=== PATIENT | female | born 1940 | race Caucasian/White ===

== ENCOUNTER → 2018-07-03 | Outpatient (CLI) | payer MEDICARE, BC ==
[~2018-07-03] MED LIST: ANTIVERT 25MG25 MG PO; ASPIRIN 81M81 MG/TA2 PO; CALCIUM500 MG PO; CHOLESTEROL MED; CLARITIN 1010 MG/TAB PO; CORGARD40 MG PO; DYAZIDE 25 MG-31 CAP PO; FISH OIL1000 MG PO; LEVAQUIN500 MG PO; LEVEMIR100 U/ML SQ; LEVOTHYROXIN0.137 MG PO; LOTENSIN20 MG PO; METFORMIN500 MG PO; NADOLOL40 MG PO; NORVASC10 MG PO; ONGLYZA5 MG PO; PLAVIX 75MG TAB75 MG PO; POLICOSANOL10 MG PO; POMEGRANATE WIT1 CAP PO; PRILOSEC 20MG20 MG PO; PROAIR HFA0.09 MG/AC IH; TRAVATAN Z 2.52.5 ML OP; VITAMIN B12100 MCG PO; VITAMIN D 400400 IU PO; XALATAN EYE DROPS OD; ZESTRIL 20MG TA20 MG PO
== END ==
LOC: COL.RAD 07:41
DX: M25.552 Pain in left hip (principal)
CPT/HCPCS: J3301; Q9967

== ENCOUNTER → 2018-11-28 | Outpatient (CLI) | payer MEDICARE, BC | LOC: COL.RAD 10:05 | DX: G31.9 Degenerative disease of nervous system, unspecified (principal); I67.82 Cerebral ischemia; R20.0 Anesthesia of skin; H53.8 Other visual disturbances ==

== ENCOUNTER → 2019-01-31 | Outpatient (CLI) | payer MEDICARE, BC | LOC: MC.RAD 10-14 13:00 | DX: Z12.31 Encounter for screening mammogram for malignant neoplasm of breast (principal) ==

== ENCOUNTER → 2019-04-25 | Outpatient (CLI) | payer MEDICARE, BC | LOC: COL.RAD 07:41 | DX: M25.552 Pain in left hip (principal) | CPT/HCPCS: J3301; Q9967 ==

== ENCOUNTER 2019-09-13 00:39 | Emergency (ER) | payer MEDICARE, BC ==
[~2019-09-13] VITALS: Ht 162.6 cm; Wt 82.3 kg
[2019-09-13 00:54] VITALS: TEMP 97.5
[2019-09-13 01:13] LABS: BASO # 0.1 (0.0-0.2); BASO % 0.6 % (0.0-2.0); EOS # 0.2 (0.0-0.7); EOS % 2.8 % (0-4.0); GRAN # 4.1 (1.4-6.5); GRAN % 50.1 % (42.2-75.2); HEMATOCRIT 37.1 % (37.0-47.0); HEMOGLOBIN 12.1 g/dl (12.5-16.0); LYMPH # 2.7 (1.2-3.4); LYMPH % 33.3 % (20.0-51.0); MEAN CELL VOLUME 96 fl (80.0-100.0); MEAN CORPUSCULAR HEMOGLOBIN 31 pg (27.0-31.0); MEAN CORPUSCULAR HGB CONC 33 g/dl (33.0-37.0); MEAN PLATELET VOLUME 10.3 fl (7.4-10.4); MONO # 1.1 (0.1-0.6); MONO % 12.7 % (1.7-9.3); PLATELET COUNT 208 K/mm3 (130-400); RED BLOOD COUNT 3.87 M/mm3 (4.10-5.30)
[2019-09-13 01:16] LABS: PROTHROMBIN TIME 11.2 SECONDS (9.7-12.8)
[2019-09-13 01:20] LABS: ALANINE AMINOTRANSFERASE 16 U/L (9-52); ALBUMIN 4.3 gm/dL (3.5-5.0); ALKALINE PHOSPHATASE 49 U/L (50-136); ANION GAP 11 mmol/L (7-16); AST,SGOT 35 U/L (15-37); BILIRUBIN,TOTAL 0.2 mg/dL (0.0-1.0); BLOOD UREA NITROGEN 37 mg/dL (7-17); CALCIUM 9.4 mg/dL (8.4-10.2); CARBON DIOXIDE 25 mmol/L (22-30); CHLORIDE 105 mmol/L (98-107); CREATININE, serum 1.09 (0.52-1.25); GLUCOSE 148 mg/dL (74-106); POTASSIUM 4.1 mmol/L (3.4-5.0); SODIUM 141 mmol/L (137-145); TOTAL PROTEIN 7.6 gm/dL (6.4-8.2)
[2019-09-13 01:31] LABS: TROPONIN-I < 0.012 ng/mL (0.000-0.035)
[2019-09-13 05:45] VITALS: BP 134/48; PULSE 55
== END 2019-09-13 05:59 | disposition home or self-care (01) ==
LOC: COL.ER 00:39
PROVIDERS: Emergency Medicine
DX: G89.29 Other chronic pain (principal); M25.512 Pain in left shoulder; E86.0 Dehydration; R20.2 Paresthesia of skin; M54.5 Low back pain; E11.9 Type 2 diabetes mellitus without complications; I10 Essential (primary) hypertension; E03.9 Hypothyroidism, unspecified; Z79.82 Long term (current) use of aspirin; Z79.4 Long term (current) use of insulin
CPT/HCPCS: J1885; J2360; J7030

== ENCOUNTER → 2019-09-23 | Outpatient (CLI) | payer MEDICARE, BC | LOC: COL.RAD 07:55 | DX: M25.552 Pain in left hip (principal) | CPT/HCPCS: J3301; Q9967 ==

== ENCOUNTER 2020-07-29 11:09 | Emergency (ER) | payer MEDICARE, BC ==
[~2020-07-29] VITALS: Ht 162.6 cm; Wt 77.7 kg
[2020-07-29 11:18] VITALS: TEMP 98
[2020-07-29 11:57] LABS: BASO # 0.1 (0.0-0.2); BASO % 0.5 % (0.0-2.0); EOS # 0.3 (0.0-0.7); EOS % 2.9 % (0-4.0); GRAN # 5.4 (1.4-6.5); GRAN % 58.9 % (42.2-75.2); HEMATOCRIT 37.8 % (37.0-47.0); HEMOGLOBIN 12.6 g/dl (12.5-16.0); LYMPH # 2.6 (1.2-3.4); LYMPH % 27.7 % (20.0-51.0); MEAN CELL VOLUME 94 fl (80.0-100.0); MEAN CORPUSCULAR HEMOGLOBIN 31 pg (27.0-31.0); MEAN CORPUSCULAR HGB CONC 33 g/dl (33.0-37.0); MEAN PLATELET VOLUME 10.1 fl (7.4-10.4); MONO # 0.9 (0.1-0.6); MONO % 9.7 % (1.7-9.3); PLATELET COUNT 252 K/mm3 (130-400); RED BLOOD COUNT 4.03 M/mm3 (4.10-5.30); REDCELL DISTRIBUTION WIDTH-CV 13.2 % (11.5-14.5)
[2020-07-29 12:10] LABS: ALBUMIN 4.6 gm/dL (3.5-5.0); BILIRUBIN,TOTAL 0.3 mg/dL (0.0-1.0); CALCIUM 9.4 mg/dL (8.4-10.2); POTASSIUM 4.1 mmol/L (3.4-5.0); TOTAL PROTEIN 8.1 gm/dL (6.4-8.2)
[2020-07-29 14:54] VITALS: BP 112/70; PULSE 79
[2020-08-02] MEDS ORDERED: PLAVIX 75MG TAB75 MG PO (17:08)
[2020-08-02] MEDS ORDERED: AMARYL 2MG T2 MG/TAB PO (17:46)
[2020-08-02] MEDS ORDERED: HCTZ12.5TAB PO (17:47)
[2020-08-02] MEDS ORDERED: TRULICITY0.75 MG/0. SQ (17:47)
[2020-08-02] MEDS ORDERED: PROLIA60 MG/ML SQ (17:48)
[2020-08-02] MEDS ORDERED: NOVOLOG 100U100 U/M1 SQ (17:49)
[2020-08-02] MEDS ORDERED: CRANBERRY250 MG PO (20:54)
[2020-08-02] MEDS ORDERED: ATORVASTATIN PO (20:56)
== END 2020-07-29 15:17 | disposition home or self-care (01) ==
LOC: COL.ER 11:09
PROVIDERS: Emergency Medicine
DX: R20.2 Paresthesia of skin (principal); Z88.8 Allergy status to other drugs, medicaments and biological substances; Z79.82 Long term (current) use of aspirin; Z79.4 Long term (current) use of insulin

== ENCOUNTER → 2020-08-05 | Outpatient (CLI) | payer MEDICARE, BC ==
[~2020-08-05] MED LIST changes: +AMARYL 2MG T2 MG/TAB PO; +CRANBERRY250 MG PO; +HCTZ12.5TAB PO; +LIPITOR20 MG PO; +NOVOLOG 100U100 U/M1 SQ; +PROLIA60 MG/ML SQ; +TRULICITY0.75 MG/0. SQ
== END ==
LOC: MC.RAD 09:29
DX: Z12.31 Encounter for screening mammogram for malignant neoplasm of breast (principal); N64.4 Mastodynia

== ENCOUNTER 2020-09-17 17:33 | Emergency (ER) | payer MEDICARE, BC ==
[~2020-09-17] VITALS: Ht 162.6 cm; Wt 77.3 kg
[2020-09-17 17:37] VITALS: TEMP 98.2
[2020-09-17 18:14] LABS: BASO % 0.5 % (0.0-2.0); EOS # 0.2 (0.0-0.7); EOS % 2.4 % (0-4.0); GRAN % 50.7 % (42.2-75.2); HEMOGLOBIN 13.2 g/dl (12.5-16.0); LYMPH # 2.7 (1.2-3.4); LYMPH % 34.2 % (20.0-51.0); MEAN CELL VOLUME 91 fl (80.0-100.0); MEAN CORPUSCULAR HEMOGLOBIN 31 pg (27.0-31.0); MEAN CORPUSCULAR HGB CONC 34 g/dl (33.0-37.0); MEAN PLATELET VOLUME 9.9 fl (7.4-10.4); MONO # 0.9 (0.1-0.6); MONO % 11.8 % (1.7-9.3); PLATELET COUNT 290 K/mm3 (130-400); RED BLOOD COUNT 4.31 M/mm3 (4.10-5.30); REDCELL DISTRIBUTION WIDTH-CV 13.2 % (11.5-14.5)
[2020-09-17 18:20] LABS: PROTHROMBIN TIME 10.8 SECONDS (9.7-12.8)
[2020-09-17 18:26] LABS: ALANINE AMINOTRANSFERASE 22 U/L (4-34); ALBUMIN 4.6 gm/dL (3.5-5.0); ALKALINE PHOSPHATASE 48 U/L (50-136); ANION GAP 9 mmol/L (7-16); AST,SGOT 25 U/L (15-37); BILIRUBIN,TOTAL 0.3 mg/dL (0.0-1.0); BLOOD UREA NITROGEN 23 mg/dL (7-17); CALCIUM 9.5 mg/dL (8.4-10.2); CARBON DIOXIDE 27 mmol/L (22-30); CHLORIDE 102 mmol/L (98-107); CREATINE KINASE 114 U/L (30-135); CREATININE, serum 0.94 (0.52-1.25); GLUCOSE 128 mg/dL (74-106); LIPASE 105 U/L (23-300); POTASSIUM 3.3 mmol/L (3.4-5.0); SODIUM 139 mmol/L (137-145); TOTAL PROTEIN 8.1 gm/dL (6.4-8.2)
[2020-09-17 18:39] LABS: TROPONIN-I < 0.012 ng/mL (0.000-0.035)
[2020-09-17 18:49] LABS: D-DIMER < 200.00 ng/mLDDu (200-230)
[2020-09-17 21:21] VITALS: BP 167/84; PULSE 76
== END 2020-09-17 21:34 | disposition home or self-care (01) ==
LOC: COL.ER 17:33
PROVIDERS: Emergency Medicine
DX: R07.89 Other chest pain (principal); R11.0 Nausea; E11.9 Type 2 diabetes mellitus without complications; I10 Essential (primary) hypertension; E03.9 Hypothyroidism, unspecified; Z79.82 Long term (current) use of aspirin; Z79.02 Long term (current) use of antithrombotics/antiplatelets; Z87.891 Personal history of nicotine dependence; Z88.8 Allergy status to other drugs, medicaments and biological substances; Z79.890 Hormone replacement therapy; Z79.4 Long term (current) use of insulin
CPT/HCPCS: J7030; Q9967

== ENCOUNTER 2021-08-03 12:31 | Outpatient (RCR) | payer MEDICARE, BC ==
[~2021-08-03 12:31] MED LIST changes: +IMDUR 60MG60 MG/TAB PO; +PRINIVIL20 MG PO
== END 2021-08-04 | disposition home or self-care (01) ==
LOC: COL.CR
DX: Z48.812 Encounter for surgical aftercare following surgery on the circulatory system (principal); Z95.5 Presence of coronary angioplasty implant and graft

== ENCOUNTER 2021-08-12 14:04 | Outpatient (RCR) | payer MEDICARE, BC | END 2021-11-06 | disposition home or self-care (01) | LOC: COL.CR | DX: Z48.812 Encounter for surgical aftercare following surgery on the circulatory system (principal); Z95.5 Presence of coronary angioplasty implant and graft ==

== ENCOUNTER 2022-01-20 12:23 | Emergency (ER) | payer MEDICARE, BC ==
[~2022-01-20] VITALS: Ht 162.6 cm; Wt 80.9 kg
[2022-01-20 13:00] LABS: BASO # 0.1 K/mm3 (0.0-0.2); BASO % 0.7 % (0.0-2.0); EOS # 0.2 K/mm3 (0.0-0.7); EOS % 2.2 % (0.0-4.0); GRAN # 4.8 K/mm3 (1.4-6.5); GRAN % 64.1 % (42.2-75.2); HEMATOCRIT 38.3 % (37.0-47.0); LYMPH # 1.7 K/mm3 (1.2-3.4); LYMPH % 23.2 % (20.0-51.0); MEAN CELL VOLUME 92 fl (80.0-100.0); MEAN CORPUSCULAR HEMOGLOBIN 31 pg (27-31); MEAN CORPUSCULAR HGB CONC 34 g/dl (33.0-37.0); MONO # 0.7 K/mm3 (0.1-0.6); MONO % 9.4 % (1.7-9.3); PLATELET COUNT 225 K/mm3 (130-400); RED BLOOD COUNT 4.15 M/mm3 (4.10-5.30); REDCELL DISTRIBUTION WIDTH-CV 14.5 % (11.5-14.5)
[2022-01-20 13:18] LABS: ALANINE AMINOTRANSFERASE 23 U/L (0-55); ALBUMIN 4.5 gm/dL (3.4-4.8); ALKALINE PHOSPHATASE 50 U/L (40-150); ANION GAP 13 mmol/L (7-16); AST,SGOT 23 U/L (5-34); BILIRUBIN,TOTAL 0.4 mg/dL (0.2-1.2); BLOOD UREA NITROGEN 28 mg/dL (10-20); CALCIUM 9.8 mg/dL (8.4-10.2); CARBON DIOXIDE 20 mmol/L (23-31); CHLORIDE 107 mmol/L (98-107); CREATININE, serum 1.05 mg/dL (0.57-1.11); GLUCOSE 111 mg/dL (70-99); POTASSIUM 4.8 mmol/L (3.5-4.5); SODIUM 140 mmol/L (136-145); TOTAL PROTEIN 8.1 gm/dL (6.2-8.1)
[2022-01-20 13:24] LABS: TROPONIN-I < 0.010 ng/mL (0.00-0.033)
[2022-01-20 16:30] VITALS: BP 153/75; PULSE 75
== END 2022-01-20 16:30 | disposition home or self-care (01) ==
LOC: COL.ER 12:23
PROVIDERS: Emergency Medicine
DX: R07.89 Other chest pain (principal); Z87.891 Personal history of nicotine dependence; Z20.822 Contact with and (suspected) exposure to COVID-19

== ENCOUNTER 2022-02-01 06:19 | Day surgery (SDC) | payer MEDICARE, BC ==
[~2022-02-01] VITALS: Ht 162.6 cm; Wt 79.2 kg
[2022-02-01] VITALS (14 sets, daily range): BP systolic 103–125; BP diastolic 41–67; PULSE 63–80; TEMP 98.1
[~2022-02-01 06:19] MED LIST changes: -LEVOTHYROXIN0.137 MG PO; +LIPITOR 80MG80 MG PO; -LIPITOR20 MG PO; +NORVASC 10MG10 MG PO; -NORVASC10 MG PO; +SYNTHROID0.137 MG PO; -TRULICITY0.75 MG/0. SQ; +TRULICITY1.5 MG/0.5 SQ; +VITAMIN B12 781 TAB PO; -VITAMIN B12100 MCG PO
[2022-02-01 07:11] LABS: HEMOGLOBIN 11.3 g/dl (12.5-16.0); MEAN CELL VOLUME 93 fl (80.0-100.0); MEAN CORPUSCULAR HEMOGLOBIN 32 pg (27-31); MEAN CORPUSCULAR HGB CONC 34 g/dl (33.0-37.0); MEAN PLATELET VOLUME 9.6 fl (7.4-10.4); PLATELET COUNT 222 K/mm3 (130-400); RED BLOOD COUNT 3.59 M/mm3 (4.10-5.30); REDCELL DISTRIBUTION WIDTH-CV 14.3 % (11.5-14.5)
[2022-02-01 07:20] LABS: HEMATOCRIT 33.5 % (37.0-47.0)
[2022-02-01 07:24] LABS: INR 1.1 (0.8-3.0)
[2022-02-01 07:27] LABS: CALCIUM 9.2 mg/dL (8.4-10.2); CREATININE, serum 1.05 mg/dL (0.57-1.11); PARTIAL THROMBOPLASTIN TIME 26.4 SECONDS (26.0-37.0); POTASSIUM 4.2 mmol/L (3.5-4.5)
--- NOTE | 2022-02-01 08:24 | NUR ---
Moderate sedation assessment completed after assessing patient in express. See merge for all assessment, medication, intervention, and vital signs times.
[2022-02-01] MEDS ORDERED: RESTASIS MULTI5.5 ML OP (08:30)
[2022-02-01] MEDS ORDERED: ZYLOPRIM 100MG100 MG PO (08:38)
[2022-02-01] MEDS ORDERED: IMDUR 60MG60 MG/TAB PO (12:30)
[2022-02-01] MEDS ORDERED: RANEXA 500MG T500 MG PO (12:31)
--- NOTE | 2022-02-01 14:06 | NUR ---
Discharge instructions given to pt.Pt verbalizes understanding.INT removed,catheter tip intact.
--- NOTE | 2022-02-01 14:33 | NUR ---
Pt escorted out via wheelchair by this nurse.
== END 2022-02-01 14:35 ==
LOC: COL.CAR 06:19
PROVIDERS: Internal Medicine Cardiovascular Disease
DX: I25.119 Atherosclerotic heart disease of native coronary artery with unspecified angina pectoris (principal); I65.23 Occlusion and stenosis of bilateral carotid arteries; I10 Essential (primary) hypertension; E78.49 Other hyperlipidemia; I34.0 Nonrheumatic mitral (valve) insufficiency; I77.1 Stricture of artery; E11.9 Type 2 diabetes mellitus without complications; Z79.4 Long term (current) use of insulin; Z87.891 Personal history of nicotine dependence; Z79.82 Long term (current) use of aspirin; Z79.02 Long term (current) use of antithrombotics/antiplatelets
CPT/HCPCS: C1760; C1894; J1644; J2250; J3010; Q9967

== ENCOUNTER 2022-03-10 15:44 | Outpatient (RCR) | payer MEDICARE, BC ==
[~2022-03-10 15:44] MED LIST changes: +RANEXA 500MG T500 MG PO; +RESTASIS MULTI5.5 ML OP; +ZYLOPRIM 100MG100 MG PO
== END 2022-03-11 | disposition still patient (30) ==
LOC: COL.CR
DX: I20.8 Other forms of angina pectoris (principal)

== ENCOUNTER 2022-03-30 12:28 | Emergency (ER) | payer MEDICARE, BC ==
[~2022-03-30] VITALS: Ht 162.6 cm; Wt 79.1 kg
[2022-03-30 12:37] VITALS: TEMP 97.1
[2022-03-30 13:16] LABS: BASO # 0.1 K/mm3 (0.0-0.2); BASO % 0.7 % (0.0-2.0); EOS # 0.2 K/mm3 (0.0-0.7); EOS % 2.5 % (0.0-4.0); GRAN % 59.5 % (42.2-75.2); HEMATOCRIT 38.1 % (37.0-47.0); HEMOGLOBIN 12.6 g/dl (12.5-16.0); LYMPH # 1.8 K/mm3 (1.2-3.4); LYMPH % 26.4 % (20.0-51.0); MEAN CELL VOLUME 97 fl (80.0-100.0); MEAN CORPUSCULAR HEMOGLOBIN 32 pg (27-31); MEAN CORPUSCULAR HGB CONC 33 g/dl (33.0-37.0); MEAN PLATELET VOLUME 9.8 fl (7.4-10.4); MONO # 0.7 K/mm3 (0.1-0.6); MONO % 10.6 % (1.7-9.3); PLATELET COUNT 235 K/mm3 (130-400); RED BLOOD COUNT 3.93 M/mm3 (4.10-5.30); REDCELL DISTRIBUTION WIDTH-CV 13.8 % (11.5-14.5)
[2022-03-30 13:30] LABS: ALANINE AMINOTRANSFERASE 16 U/L (0-55); ALBUMIN 4.2 gm/dL (3.4-4.8); ALKALINE PHOSPHATASE 69 U/L (40-150); ANION GAP 11 mmol/L (7-16); AST,SGOT 16 U/L (5-34); BILIRUBIN,TOTAL 0.5 mg/dL (0.2-1.2); BLOOD UREA NITROGEN 28 mg/dL (10-20); CALCIUM 9.4 mg/dL (8.4-10.2); CARBON DIOXIDE 21 mmol/L (23-31); CHLORIDE 108 mmol/L (98-107); CREATININE, serum 1.28 mg/dL (0.57-1.11); GLUCOSE 113 mg/dL (70-99); POTASSIUM 4.6 mmol/L (3.5-4.5); SODIUM 140 mmol/L (136-145); TOTAL PROTEIN 7.6 gm/dL (6.2-8.1)
[2022-03-30 13:36] LABS: TROPONIN-I < 0.010 ng/mL (0.00-0.033)
[2022-03-30 14:52] VITALS: BP 130/60; PULSE 64
== END 2022-03-30 14:53 | disposition home or self-care (01) ==
LOC: COL.ER 12:28
PROVIDERS: Student in an Organized Health Care Education/Training Program
DX: R07.89 Other chest pain (principal); Z95.5 Presence of coronary angioplasty implant and graft

== ENCOUNTER 2022-04-05 11:43 | Outpatient (RCR) | payer MEDICARE, BC | END 2022-04-11 | disposition home or self-care (01) | LOC: COL.CR | DX: I20.8 Other forms of angina pectoris (principal) ==

== ENCOUNTER 2022-04-24 12:17 | Outpatient (RCR) | payer MEDICARE, BC ==
[2022-04-28] MEDS ORDERED: RANEXA 500MG T500 MG PO (12:38)
[2022-04-28] MEDS ORDERED: ISOSORBIDE MON120 MG PO (12:42)
[2022-04-28] MEDS ORDERED: COREG12.5 MG PO (12:44)
[2022-04-28] MEDS ORDERED: THE MEDICINE S200 M2 PO (12:44)
[2022-04-28] MEDS ORDERED: ZOFRAN 4MG T4 MG/TAB PO (12:45)
[2022-04-28] MEDS ORDERED: TART CHERRY (12:47)
[2022-04-29] MEDS ORDERED: CORGARD40 MG PO (11:37)
== END 2022-05-11 | disposition home or self-care (01) ==
LOC: COL.CR
DX: I20.8 Other forms of angina pectoris (principal)

== ENCOUNTER 2022-04-28 10:41 | Day surgery (SDC) | payer MEDICARE, BC ==
[~2022-04-28] VITALS: Ht 162.6 cm; Wt 80.3 kg
[2022-04-28] VITALS (18 sets, daily range): BP systolic 72–144; BP diastolic 30–88; PULSE 73–93; TEMP 97.8
[2022-04-28 11:14] LABS: HEMATOCRIT 37.4 % (37.0-47.0); MEAN CELL VOLUME 100 fl (80.0-100.0); MEAN CORPUSCULAR HEMOGLOBIN 32 pg (27-31); MEAN CORPUSCULAR HGB CONC 32 g/dl (33.0-37.0); MEAN PLATELET VOLUME 9.6 fl (7.4-10.4); PLATELET COUNT 223 K/mm3 (130-400); RED BLOOD COUNT 3.74 M/mm3 (4.10-5.30)
[2022-04-28 11:30] LABS: CALCIUM 9.4 mg/dL (8.4-10.2); CREATININE, serum 1.46 mg/dL (0.57-1.11)
[2022-04-28 11:34] LABS: PARTIAL THROMBOPLASTIN TIME 29.4 SECONDS (26.0-37.0)
[2022-04-28] MEDS ORDERED: RANEXA 500MG T500 MG PO (12:38)
[2022-04-28] MEDS ORDERED: ISOSORBIDE MON120 MG PO (12:42)
[2022-04-28] MEDS ORDERED: COREG12.5 MG PO (12:44)
[2022-04-28] MEDS ORDERED: THE MEDICINE S200 M2 PO (12:44)
[2022-04-28] MEDS ORDERED: ZOFRAN 4MG T4 MG/TAB PO (12:45)
[2022-04-28] MEDS ORDERED: TART CHERRY (12:47)
--- NOTE | 2022-04-28 13:49 | NUR ---
See merge for all medication, assessment, intervention, and vital sign times.
--- NOTE | 2022-04-28 15:20 | NUR ---
RECEIVED REPORT FROM [facility] THAT PT WOULD TRANSFER TO MEDICAL ROOM 313 AFTER PROCEDURE.
--- NOTE | 2022-04-28 18:14 | NUR ---
Right femoral site remains CDI. No sign of hematoma. Patient denies any pain.
--- NOTE | 2022-04-29 02:33 | NUR ---
Pt alert and oriented this evening, resting quietly. Follows commands. Pt had cardiac catheterization via right femoral on 04/28/22. Completed the post-procedure VS protocol. VS remained stable post procedure. Assessed right femoral site frequently along with VS. Site is soft. No bleeding/hematoma/drainage noted at site. 2+ pedal pulses and 2+ radial pulses palpated bilaterally. Pt reports full sensation in BLE and feet. Enforced flat time until 1930 on 04/28/22 and bedrest until 2099 on 04/28/22. Pt has been up to void as a standby assist x3 overnight. Right femoral site remains soft, with no bleeding/hematoma/drainage noted. Pt denies pain at right femoral site. 0.45% NS continues at 100 ml/hr. Shift assessment performed. Medications administered per orders and education provided. VS currently stable. Pt afebrile. Satting WNL on room air. Continuing to frequently assess right femoral site. Pt denies chest pain/SOB. Tolerating PO. Pt does not report any questions at this time, will continue to monitor.
[2022-04-29 05:12] VITALS: BP 109/50; PULSE 75; TEMP 97.8
--- NOTE | 2022-04-29 06:30 | NUR ---
PT AWAKE AND LAYING IN BED, ORDERED BREAKFAST, WILL RETURN FOR MORNING MEDICAITONS AND ASSESSMENT.
--- NOTE | 2022-04-29 07:24 | NUR ---
No adverse events overnight. Pt remains alert and oriented, resting in bed currently, follows commands. Denies chest pain/SOB. Denies pain at femoral site. Right femoral site remains soft/dry/intact. 2+ pedal and radial pulses. Pt reports sensation in BLE. Extremities warm. VS stable. Pt tolerating PO. Adequate urine output overnight. Heart rythym NSR, rate at 78. Afebrile. Pt ambulates independently. Continuing with 0.45% NS at 100 ml/hr. Pt does not report any questions at this time, will continue to monitor.
[2022-04-29 07:30] VITALS: BP 136/52; PULSE 94; TEMP 97.9
[2022-04-29 07:31] LABS: BASO % 0.4 % (0.0-2.0); EOS # 0.2 K/mm3 (0.0-0.7); EOS % 2.4 % (0.0-4.0); GRAN # 5.1 K/mm3 (1.4-6.5); GRAN % 66.8 % (42.2-75.2); HEMOGLOBIN 11.1 g/dl (12.5-16.0); LYMPH # 1.3 K/mm3 (1.2-3.4); LYMPH % 17.4 % (20.0-51.0); MEAN CELL VOLUME 100 fl (80.0-100.0); MEAN CORPUSCULAR HEMOGLOBIN 33 pg (27-31); MEAN CORPUSCULAR HGB CONC 33 g/dl (33.0-37.0); MONO % 12.6 % (1.7-9.3); PLATELET COUNT 215 K/mm3 (130-400); RED BLOOD COUNT 3.39 M/mm3 (4.10-5.30); REDCELL DISTRIBUTION WIDTH-CV 14.1 % (11.5-14.5)
[2022-04-29 07:34] LABS: HEMATOCRIT 33.9 % (37.0-47.0)
[2022-04-29 08:00] LABS: CALCIUM 8.9 mg/dL (8.4-10.2); CREATININE, serum 1.21 mg/dL (0.57-1.11); POTASSIUM 4.9 mmol/L (3.5-4.5)
[2022-04-29 11:17] VITALS: BP 132/48; PULSE 76; TEMP 98.6
[2022-04-29] MEDS ORDERED: CORGARD40 MG PO (11:37)
== END 2022-04-29 12:30 | disposition home or self-care (01) ==
LOC: COL.CAR 10:41 → MEDICAL 15:42 → COL.CAR 04-29 12:30
PROVIDERS: Internal Medicine Cardiovascular Disease
DX: I25.10 Atherosclerotic heart disease of native coronary artery without angina pectoris (principal)
CPT/HCPCS: OP; C1725; C1760; C1769; C1874; C1887; C1894; C9600; C9601; J0583; J1644; J1815; J2250; J3010; Q9967

== ENCOUNTER 2022-06-09 12:08 | Outpatient (RCR) | payer MEDICARE, BC ==
[~2022-06-09 12:08] MED LIST changes: +COREG12.5 MG PO; +ISOSORBIDE MON120 MG PO; +TART CHERRY; +THE MEDICINE S200 M2 PO; +ZOFRAN 4MG T4 MG/TAB PO
== END 2022-06-11 | disposition home or self-care (01) ==
LOC: COL.CR
DX: Z48.812 Encounter for surgical aftercare following surgery on the circulatory system (principal); Z95.5 Presence of coronary angioplasty implant and graft

== ENCOUNTER 2022-07-10 15:12 | Outpatient (RCR) | payer MEDICARE, BC | END 2022-07-12 | disposition home or self-care (01) | LOC: COL.CR | DX: I20.8 Other forms of angina pectoris (principal) ==

== ENCOUNTER 2022-08-21 12:02 | Outpatient (RCR) | payer MEDICARE, BC | END 2022-09-11 | disposition home or self-care (01) | LOC: COL.CR | DX: Z48.812 Encounter for surgical aftercare following surgery on the circulatory system (principal); Z95.5 Presence of coronary angioplasty implant and graft; I20.8 Other forms of angina pectoris ==

== ENCOUNTER → 2023-01-12 | Outpatient (CLI) | payer MEDICARE, BC | LOC: COL.RAD 13:50 | DX: M25.551 Pain in right hip (principal) | CPT/HCPCS: J3301; Q9967 ==